=== PATIENT | male | born 1995 | race Caucasian/White ===

== ENCOUNTER 2020-12-06 17:12 | Emergency (ER) | payer OTHER, BC, SELFPAY ==
[2020-12-06 17:13] VITALS: BP 142/74; PULSE 72; RESP 16; TEMP 36.5; O2SAT 98; BMI 25.8
[2020-12-06 17:14] VITALS: BP 142/74; PULSE 72; RESP 16; TEMP 36.5; O2SAT 98
--- NOTE | 2020-12-06 17:19 | ED.RN ---
this nurse called [facility] for a post accident drug screen, sanjuanita is on her way.
--- NOTE | 2020-12-06 17:27 | ED.VIS.GEN ---
History of Present Illness Chief Complaint: Laceration Detail of Chief Complaint: Left little finger volar side Onset: Hours Context: Sudden Onset Timing: Continuous Quality: Laceration Location: Volar side over the middle phalanx left little finger Current Severity: Mild Maximum Severity: Mild Worsened by: Metal chips Relieved by: Pressure Associated Symptoms: None Narrative: Patient is a 25-year-old [id number] male whose last tetanus shot was approximately 8 to 9 years ago who presents with laceration to the volar side of the left little finger, middle phalanx. He denies paresthesia, anesthesia medics. This occurred at work. Prior similar symptoms: No Recent Illness/Hospitalization: No - Past Medical History (1) No significant past medical history Status: Acute Past Medical History Primary Care Physician: NOT,DEFINED [NON-STAFF] - Prior records reviewed: No Past Medical History: None Surgical History: no surgical history Lives: Spouse/ Significant Other Smoking Status: Unknown if ever smoked Alcohol: Rare Drugs: None Review of Systems General: Denies: Chills, Fever, Malaise Musculoskeletal: Denies: Myalgias, Arthralgias, Swelling, Extremity Pain Skin: Reports: Wounds. Denies: Rash, Abscess, Abrasions Neurological: Denies: Weakness, Parasthesia, Numbness Hematologic: Denies: Easy bruising, Easy bleeding Physical Exam Vital Signs/Narrative: Vital Signs Temp Pulse Resp BP Pulse Ox 12/06/20 17:13 97.7 F L 72 16 142/74 H 98 Inital Vital Signs reviewed: Yes General: Well nourished, Well developed, No Acute Distress Head: Normocephalic, Atraumatic Eyes: Perrl, EOMI. Negative for: Pale conjunctiva, Scleral icterus ENT: Moist mucous membranes, No rhinorrhea, TM's clear Neck: Supple, Nontender, No lymphadenopathy, No JVD Cardiovascular: Regular rate, Regular rhythm Respiratory: No distress Extremities: - - There is a laceration over the middle phalanx volar side left little finger. The flexor digitorum superficialis and flexor digitorum profundus are intact. There is no subungual hematoma noted. Neurological: Alert, Oriented x3, Cranial nerves II-XII grossly intact, Normal Strength, Normal Sensation, - - Median, radial and ulnar function intact. Procedures - Lacerations No standard instances Length: 0.79 in Depth: Sub Q Shape: Linear Laceration repair: Digital block, Lidocaine Irrigated (ml): 75 Number of Sutures/Elvia: 3 Suture Information: Ethilon, 5-0 Procedure(s): Professional chips were noted and removed with irrigation and cleaning with wet 4 x 4. ED Disposition - Plan for ED Patient: Disposition: Home or Assisted Living Diagnosis: Laceration of left little finger with foreign body w/o damage to nail Instructions: ED Laceration, Hand: All Closures Referrals: NOT,DEFINED [NON-STAFF] - [facility] [GROUP OF PHYSICIANS] - 10 Day for suture removal
[2020-12-06] MEDS: Lidocaine 1% (20 ml mdv) 20 ML Vial INFILT (18:02)
[2020-12-06 18:27] VITALS: PULSE 76; O2SAT 98
== END 2020-12-06 18:27 | disposition home or self-care (01) ==
PROVIDERS: Emergency Provider Emergency Medicine; PCP Preventive Medicine Occupational Medicine
DX: S61.217A Laceration without foreign body of left little finger without damage to nail, initial encounter (principal); X58.XXXA Exposure to other specified factors, initial encounter; Y93.9 Activity, unspecified; Y92.9 Unspecified place or not applicable
CPT/HCPCS: 12001; 99284